=== PATIENT | male | born 1930 | race Caucasian/White ===

== ENCOUNTER → 2017-03-08 | Outpatient (CLI) | payer MEDICARE ==
--- NOTE | 2017-03-08 14:23 | KCIC ---
Carotid doppler ultrasound 03/08/2017 History: Dizziness. Multiple grayscale, color, and duplex spectral analysis waveform sonographic images were acquired of the carotid, subclavian, and vertebral arteries. Comparison: None Findings: There is intimal thickening throughout the right common carotid artery and bulb. There is no significant high-grade visualized plaque in the right internal carotid artery. There is mild scattered intimal thickening throughout the left common carotid artery and carotid bulb. No significant high-grade visualized plaque in the left internal carotid artery. RIGHT: PSV cm/sec EDV m/sec Mid Common carotid artery 76 9 Maximal internal carotid artery 61 15 External carotid artery 58 ICA/CCA ratio 0.8 LEFT: PSV cm/sec EDV cm/sec Mid Common carotid artery 85 15 Maximum internal carotid artery 65 17 External carotid artery 83 ICA/CCA ratio 0.76 Velocities used to determine stenosis are known to correlate with NASCET angiographic criteria. There is antegrade flow in the bilateral vertebral arteries. Impression: No visualized or spectral analysis evidence of hemodynamically significant carotid stenosis. Electronically signed by: Andrews Carrasquillo MD (03/08/2017 2:20 PM) [id number]
== END | disposition home or self-care (01) ==
LOC: KCIC US 13:14
PROVIDERS: ATTEND Family Medicine
DX: I65.23 Occlusion and stenosis of bilateral carotid arteries (principal)
CPT/HCPCS: 93880

== ENCOUNTER → 2017-08-09 | Outpatient (CLI) | payer BC | END | disposition home or self-care (01) | LOC: US 13:40 | DX: R22.1 Localized swelling, mass and lump, neck (principal) | CPT/HCPCS: 93971 ==

== ENCOUNTER → 2018-05-05 | Outpatient (CLI) | payer BC ==
[2017-08-07 04:00] VITALS: BP 150/84
[~2018-05-05] MED LIST: ASPI-612 PO; FINA5TAB4 PO; LOVA20TA2 PO; REGADENOSON 0.4 MG/5 ML DISP.SYRIN. IV ONE; TERA10CA3 PO
--- NOTE | 2018-05-05 13:10 | RAD ---
MR#: [id number] Date of Study: 05/05/2018 Ordering Physician: TRIXIE RANDALL, Referring Physician: LEO COREY Tech: RAJESH Carrera, ARRT (R) (N) APPROVED REPORT Test Type: Pharmacological Stress Nurse/Tech: Mary Cloud R.N. Test Indications: DONAHUE, fatigue Cardiac History: pacemaker, Medications: see ehr Medical History: see ehr Resting ECG: SR see printout Resting Heart Rate: 63 bpm Resting Blood Pressure: 152/76mmHg Pretest Chest Pain: No chest pain Nurse/Tech Notes lungs cta, heart tones regular, good radial pulse Consent: The procedure was explained to the patient in lay terms. Informed consent was witnessed. Humza eout was entered into [employer]. History and Stress Test performed by RT Isabela (R) (N) Pharm. Details Pharmacologic stress testing was performed using 0.4mg per 5ml of regadenoson given intravenously ove r 7-10 seconds. Stress Symptoms No chest pain or symptoms. POST EXERCISE Reason for Termination: Infusion complete Target HR: No Max HR: 83 bpm Max Blood Pressure: 155/84mmHg Chest Pain: No. Arrhythmia: No. pacemaker spikes noted intermittantly ST Change: No. INTERPRETATION Stress EKG Conclusion: Baseline EKG showed sinus rhythm with right bundle branch block. Nondiagnostic changes at peak stress. No arrhythmias. Imaging Protocol IMAGE PROTOCOL: Rest Tc-99m/stress Tc-99m 1 day Rest: Stress: Viability: Radiopharm.Tc99m JevjqdfugRl39n Sestamibi Fsbw39dHk 32.1mCi Duration 15min. 15min. Img Date 05/05/2018 05/05/2018 Inj-Img Rsgq71gan. 60min. Rest Admin Site:IV - Right AntecubitalAdministrator:RAJESH Carrera, ARRT (R)(N) Stress Admin Site: IV - Right AntecubitalAdministrator: RT Naomi Mar)(N) STRESS DATA End Diast. Vol.114.0mlLVEDV index BSA54.0ml End Syst. Vol.52.0mlLVESV index BSA24.0ml Myocardial Qpbg010.0gEject. Tnisncnd00.0% Stress Scores Regional WT0.00Summed WT27.00 Regional WM0.00Summed WM11.00 Study quality was good. Left Ventricular size was Normal at Rest and Stress. Lung uptake was . Left Ventricular ejection fraction is 54%. The rest and stress images show normal perfusion, normal contraction and thickening. LV Perf. Quant 17 Seg. SSS1.00 17 Seg. SRS4.00 17 Seg. SDS1.00 Stress Defect Extent (% LAD)0.00Rest Defect Extent (% LAD)0.00Rev. Defect Extent (% LAD)0.00 Stress Defect Extent (% LCX) 12.50Rest Defect Extent (% LCX)0.00Rev. Defect Extent (% LCX)12.50 Stress Defect Extent (% RCA)0.00Rest Defect Extent (% RCA)26.70Rev. Defect Extent (% RCA)0.00 Stress Defect Extent (% GIULIA)2.60Rest Defect Extent (% GIULIA)6.50Rev. Defect Extent (% GIULIA)2.60 Conclusion 1. Regadenoson cardioisotope stress test did not show any evidence of ischemia or infarct. 2. Normal left ventricular systolic function with ejection fraction calculated at 54%. 3. Low risk for cardiac events. Signed by : Trixie Randall, Electronically Approved : 05/05/2018 13:09:24
== END | disposition home or self-care (01) ==
LOC: NM 07:13
PROVIDERS: ATTEND Internal Medicine Cardiovascular Disease
DX: R06.09 Other forms of dyspnea (principal); R53.83 Other fatigue; I45.19 Other right bundle-branch block
CPT/HCPCS: 78452; 93017; 96374; 96375; 96376; A9500; J2785

== ENCOUNTER → 2018-10-01 | Outpatient (CLI) | payer BC ==
[2017-08-07 04:00] VITALS: BP 150/84
[~2018-10-01] MED LIST changes: -REGADENOSON 0.4 MG/5 ML DISP.SYRIN. IV ONE
--- NOTE | 2018-10-01 16:00 | CARD ---
MR#: [id number] Date of Study: 10/01/2018 Ordering Physician: TRIXIE RANDALL, Referring Physician: TRIXIE RANDALL, Tech: Yvonne Zendejas APPROVED REPORT EXAM: Two-dimensional and M-mode echocardiogram with Doppler and color Doppler. Other Information Quality : FairHR: 61bpm Rhythm : Pacemaker INDICATION Arrhythmia Heart Block Surgery/Intervention Pacemaker: Date: 08/2017 RISK FACTORS Hyperlipidemia 2D DIMENSIONS Left Atrium(2D)3.5 (1.6-4.0cm)IVSd1.1 (0.7-1.1cm) Aortic Root(2D)3.2 (2.0-3.7cm)LVDd6.0 (3.9-5.9cm) LVOT Diameter2.1 (1.8-2.4cm)PWd1.2 (0.7-1.1cm) LVDs3.7 (2.5-4.0cm) Aortic Valve AoV Peak Francisco Javier.144.5cm/sAoV VTI27.0cm AO Peak GR.8.4mmHgLVOT Peak Francisco Javier.98.6cm/s LVOT VTI 20.52cmAO Mean GR.4mmHg AI P 1/2 Ersk620fx Mitral Valve MV E Sfebqkrn87.7cm/sMV DECEL RIZG548iy MV A Pkqxjfbk39.9cm/sMV BCF95ij E/A Ratio1.1MVA (PHT)4.99cm2 TDI E/Lateral E'14.0E/Medial E'13.6 Pulmonary Valve PV Peak Tcfkwfvf703.4cm/sPV Peak Grad.5mmHg Tricuspid Valve TR P. Gagkhgct219pi/sRAP WXVVPBFW0nzDd TR Peak Gr.25mcWgOFGP81lrSk Pulmonary Vein S1 Hkycharx19.3cm/sD2 Aqmjaeii20.1cm/s LEFT VENTRICLE The left ventricle is normal size. There is mild concentric left ventricular hypertrophy. The left ve ntricular systolic function is normal and the ejection fraction is within normal range. The Ejection Fraction is 50-55%. Apical motion consistent with pacemaker activation. RIGHT VENTRICLE The right ventricle is normal size. There is normal right ventricular wall thickness. The right ventr icular systolic function is normal. There is a pacemaker lead in the right ventricle and atrium. ATRIA The left atrium size is normal. The right atrium is mildly dilated. There is a pacemaker lead seen in the right atrium. The interatrial septum is intact with no evidence for an atrial septal defect or p atent foramen ovale as noted on 2-D or Doppler imaging. AORTIC VALVE The aortic valve is calcified but opens well. Doppler and Color Flow revealed mild aortic regurgitati on. There is no significant aortic valvular stenosis. MITRAL VALVE The mitral valve is thickened but opens well. There is no evidence of mitral valve prolapse. There is no mitral valve stenosis. Doppler and Color-flow revealed trace mitral regurgitation. TRICUSPID VALVE The tricuspid valve is normal in structure and function. Doppler and Color Flow revealed trace tricus pid regurgitation with an estimated PAP of 29 mmHg. There is no tricuspid valve stenosis. PULMONIC VALVE The pulmonic valve is not well visualized. Doppler and Color Flow revealed no pulmonic valvular regur gitation. GREAT VESSELS The aortic root is normal in size. The IVC is normal in size and collapses >50% with inspiration. PERICARDIAL EFFUSION There is no evidence of significant pericardial effusion. Critical Notification Critical Value: No <Conclusion> The left ventricle is normal size. The left ventricular systolic function is normal and the ejection fraction is within normal range. The Ejection Fraction is 50-55%. There is mild concentric left ventricular hypertrophy. There is a pacemaker lead in the right ventricle and atrium. There is no significant aortic valvular stenosis. Doppler and Color Flow revealed mild aortic regurgitation. Doppler and Color-flow revealed trace mitral regurgitation. Doppler and Color Flow revealed trace tricuspid regurgitation with an estimated PAP of 29 mmHg. Signed by : Asim Hall MD Electronically Approved : 10/01/2018 15:59:59
== END | disposition home or self-care (01) ==
LOC: ECHO 12:41
PROVIDERS: ATTEND Internal Medicine Cardiovascular Disease
DX: I35.1 Nonrheumatic aortic (valve) insufficiency (principal); I51.7 Cardiomegaly; Z95.0 Presence of cardiac pacemaker
CPT/HCPCS: 93306

== ENCOUNTER → 2021-01-18 | Outpatient (CLI) | payer MEDICARE ==
[2017-08-07 04:00] VITALS: BP 150/84
[~2021-01-18] MED LIST changes: -ASPI-612 PO; +ASPI-886 PO; +CONTRAST GIVEN. MC PRN; +IOHEXOL 240 MG/ML 50ML VIAL. PO ONE; +IOHEXOL 300 MG/ML 100ML VIAL. IV ONE
[2021-01-18 11:07] LABS: CREATININE 1.1 mg/dL (0.7-1.3)
--- NOTE | 2021-01-18 15:41 | RAD ---
EXAM: CT Abdomen and Pelvis with IV contrast CLINICAL HISTORY: change in bowel habits COMPARISON: none TECHNIQUE: Helical CT of the abdomen and pelvis was performed following the administration of intrave nous contrast. Axial, coronal and sagittal reformatted images were generated. PQRS compliance statement - One or more of the following individualized dose reduction techniques wer e utilized for this study: 1. Automated exposure control 2. Adjustment of the mA and/or kV according to patient size 3. Use of iterative reconstruction technique FINDINGS: Lower Chest: Linear and bandlike opacities bilateral lung bases likely scarring/atelectasis. Emphysematous changes are seen. Cardiomegaly. Pacer leads are seen within the heart. Abdomen and Pelvis: Hepatic hypoattenuation, fatty liver. Hepatic cysts. Indeterminate hypodense posterior right hepatic lobe lesion measures 9 mm. Spleen is unremarkable. Adrenal glands are normal. Bilateral simple appearing renal cysts are seen. No definite solid renal lesion. Symmetric nephrogram s. No hydronephrosis. No hydroureter. Prostate measures 5.9 cm in transverse dimension. Appendix is normal. Moderate colonic stool content is seen. No small or large bowel dilatation. No angeline wel obstruction. Colonic diverticulosis without CT evidence for acute diverticulitis. Atherosclerotic calcifications of aorta are seen. Aneurysmal dilatation of the infrarenal aorta measu ring up to 4.8 cm with eccentric atheromatous plaque. No abdominal or pelvic lymphadenopathy. No abdo alba or pelvic ascites. Fatty atrophy of the gluteus minimus muscle bilaterally. No aggressive osseous lesion. IMPRESSION: 1. Moderate colonic stool content. No bowel obstruction. 2. Colonic diverticulosis without CT evidence for acute diverticulitis. Hepatic hypoattenuation, fat ty liver. 3. Indeterminate hypodense posterior right hepatic lobe lesion measures 9 mm. This can be further as sessed by MRI if clinically indicated. 4. 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 Electronically signed by: Noah Addison MD (01/18/2021 3:38 PM) [facility]
== END ==
LOC: CT 10:16
PROVIDERS: ATTEND Internal Medicine Gastroenterology
DX: K57.30 Diverticulosis of large intestine without perforation or abscess without bleeding (principal); K76.0 Fatty (change of) liver, not elsewhere classified; I71.4 Abdominal aortic aneurysm, without rupture; R19.4 Change in bowel habit; K76.89 Other specified diseases of liver; I70.0 Atherosclerosis of aorta; J43.9 Emphysema, unspecified; I51.7 Cardiomegaly
CPT/HCPCS: 36415; 74177; 82565; 84520; Q9966; Q9967

== ENCOUNTER → 2021-05-29 | Outpatient (CLI) | payer BC, MEDICARE ==
[2017-08-07 04:00] VITALS: BP 150/84
[~2021-05-29] MED LIST changes: -CONTRAST GIVEN. MC PRN; -IOHEXOL 240 MG/ML 50ML VIAL. PO ONE; -IOHEXOL 300 MG/ML 100ML VIAL. IV ONE
--- NOTE | 2021-05-31 10:05 | CARD ---
MR#: [id number] Date of Study: 05/29/2021 Ordering Physician: TRIXIE RANDALL, Referring Physician: TRIXIE RANDALL, Tech: APPROVED REPORT EXAM: Two-dimensional and M-mode echocardiogram with Doppler and color Doppler. Other Information Technically limited study due to body habitus. INDICATION Arrhythmia Complete Heart Block Surgery/Intervention Pacemaker: Date: 2016 RISK FACTORS Hyperlipidemia 2D DIMENSIONS Left Atrium(2D)3.3 (1.6-4.0cm)IVSd1.1 (0.7-1.1cm) Aortic Root(2D)3.5 (2.0-3.7cm)LVDd5.9 (3.9-5.9cm) LVOT Diameter2.1 (1.8-2.4cm)PWd1.2 (0.7-1.1cm) LVDs3.7 (2.5-4.0cm)FS (%) 37.2 % SV112.8 mlLVEF(%)66.4 (>50%) Aortic Valve AoV Peak Francisco Javier.103.9cm/sAoV VTI21.1cm AO Peak GR.4.3mmHgLVOT Peak Francisco Javier.104.1cm/s LVOT VTI 20.17cmAO Mean GR.2mmHg BATSHEVA (VMAX)2.41hm3UFE (VTI)3.36cm2 AI P 1/2 Jczi641fy Mitral Valve MV E Idttipyj12.9cm/sMV DECEL DMIQ071wi MV A Zcoaozvb54.6cm/sMV E Mean Gr.1mmHg MV MML02xgB/A Ratio0.5 MVA (PHT)2.71cm2 TDI E/Lateral E'5.1E/Medial E'5.5 Pulmonary Valve PV Peak Vlotvtou22.3cm/sPV Peak Grad.3mmHg Tricuspid Valve TR P. Htlgpcyw907ed/sRAP EYUKBGNP2nbWj TR Peak Gr.88hkNyBXRP41msUk Pulmonary Vein S1 Rusgwvbr26.0cm/sD2 Dldpchay29.1cm/s PVa buetztcx047nvzu LEFT VENTRICLE The left ventricle is normal size. There is borderline to mild concentric left ventricular hypertroph y. The systolic function is mildly to moderately impaired. The Ejection Fraction is 40%. Wall motion consistent with conduction abnormality. Otherwise, there is global hypokinesis. Transmitral Doppler f low pattern is abnormal. RIGHT VENTRICLE The right ventricle is normal size. There is normal right ventricular wall thickness. The right ventr icular systolic function is normal. There is a pacemaker lead in the right ventricle. ATRIA The left atrium size is normal. The right atrium size is normal. The interatrial septum is intact wit h no evidence for an atrial septal defect or patent foramen ovale as noted on 2-D or Doppler imaging. AORTIC VALVE The aortic valve is calcified but opens well. Doppler and Color Flow revealed trace aortic regurgitat ion. Calculated aortic valve area is 3.41 cm2 with maximum pressure gradient of 5 mmHg and mean press ure gradient of 3 mmHg. MITRAL VALVE The mitral valve is normal in structure and function. There is no evidence of mitral valve prolapse. There is no mitral valve stenosis. Doppler and Color-flow revealed trace mitral regurgitation. TRICUSPID VALVE The tricuspid valve is normal in structure and function. Doppler and Color Flow revealed trace tricus pid regurgitation with an estimated PAP of 26 mmHg. There is no tricuspid valve stenosis. PULMONIC VALVE The pulmonic valve is not well visualized. Doppler and Color Flow revealed trace pulmonic valvular re gurgitation. There is no pulmonic valvular stenosis. GREAT VESSELS The aortic root is normal in size. The ascending aorta is normal in size. The IVC is normal in size a nd collapses >50% with inspiration. PERICARDIAL EFFUSION There is no evidence of significant pericardial effusion. Critical Notification Critical Value: No <Conclusion> The systolic function is mildly to moderately impaired. The Ejection Fraction is 40%. Wall motion consistent with conduction abnormality. Otherwise, there is global hypokinesis. There is a pacemaker lead in the right ventricle. Doppler and Color Flow revealed trace tricuspid regurgitation with an estimated PAP of 26 mmHg. Signed by : Robert Titus, Electronically Approved : 05/31/2021 10:05:38
== END ==
LOC: ECHO 10:18
PROVIDERS: ATTEND Internal Medicine Cardiovascular Disease
DX: I35.1 Nonrheumatic aortic (valve) insufficiency (principal); I51.89 Other ill-defined heart diseases; I44.2 Atrioventricular block, complete
CPT/HCPCS: 93306

== ENCOUNTER → 2021-07-14 | Outpatient (CLI) | payer MEDICARE ==
[2017-08-07 04:00] VITALS: BP 150/84
[2021-07-14] MEDS: REGADENOSON 0.4 MG/5 ML DISP.SYRIN. IV ONE (08:45)
--- NOTE | 2021-07-14 14:49 | RAD ---
MR#: [id number] Date of Study: 07/14/2021 Ordering Physician: TRIXIE RANDALL, Referring Physician: LEO COREY Tech: RT Isabela (R) (N) APPROVED REPORT Test Type: Pharmacological Stress Nurse/Tech: Leticia Be R.N. Test Indications: complete heart block Cardiac History: PPM. x smoker Medications: See Electronic Medical Record Medical History: See Electronic Medical Record Resting ECG: vpaced Resting Heart Rate: 68 bpm Resting Blood Pressure: 155/70mmHg Pretest Chest Pain: No chest pain Nurse/Tech Notes S1S2, lungs CTA Consent: The procedure was explained to the patient in lay terms. Informed consent was witnessed. Humza eout was entered into [employer]. History and Stress Test performed by Lilliana Chan R.N. Pharm. Details Pharmacologic stress testing was performed using 0.4mg per 5ml of regadenoson given intravenously ove r 7-10 seconds. Stress Symptoms SOA, numbness and tingly in feet POST EXERCISE Reason for Termination: Infusion complete Max HR: 116 bpm Max Blood Pressure: 136/64mmHg Blood Pressure response to exercise: Normal blood pressure response during stress. Heart Rate response to exercise: wnl Chest Pain: No. Arrhythmia: No. ST Change: No. INTERPRETATION Stress EKG Conclusion: The resting EKG shows a V paced rhythm with both sinus beats and A paced beats . The patient remains with ventricular paced beats throughout the study. Imaging Protocol IMAGE PROTOCOL: Rest Tc-99m/stress Tc-99m 1 day Rest: Stress: Viability: Radiopharm.Tc99m SftkorrdqLx72u Sestamibi Mslh43tIo 32mCi Duration 15min. 10min. Img Date 07/14/2021 07/14/2021 Inj-Img Dpgb22poo. 60min. Rest Admin Site:IV - Right AntecubitalAdministrator: EMIL Larson Stress Admin Site: IV - Right AntecubitalAdministrator: RT Lisa (R)(N) STRESS DATA End Diast. Vol.144.0mlAv. Heart Rate81.0bpm End Syst. Vol.60.0mlCO Index BSA6.8L/min Myocardial Njne360.0gEject. Wnclsynz89.0% Stress Rates Pk. Fill Rate3.12EDV/secLVtime Pk. Fill 183.72msec Pk. Empty Rate3.39ESV/secLVtime Pk. Mtoug557.85msec 1/3 Pk. Fill0.60EDV/sec Stress Scores Regional WT0.00Summed WT7.00 Regional WM0.00Summed WM3.00 LV Perfusion The stress scans show mild inferior wall thinning. The rest scans show mild inferior wall thinning. Nuclear imaging shows no reversible ischemia. Nuclear imaging shows a fixed inferior wall defect most consistent with a technical artifact. Wall Motion Left ventricular systolic function is normal with an ejection fraction of 58%. LV Perf. Quant 17 Seg. SSS9.00 17 Seg. SRS28.00 17 Seg. SDS0.00 Stress Defect Extent (% LAD)10.60Rest Defect Extent (% LAD)30.60Rev. Defect Extent (% LAD)0.00 Stress Defect Extent (% LCX) 42.50Rest Defect Extent (% LCX)87.50Rev. Defect Extent (% LCX)0.00 Stress Defect Extent (% RCA)25.60Rest Defect Extent (% RCA)60.00Rev. Defect Extent (% RCA)0.00 Stress Defect Extent (% GIULIA)27.20Rest Defect Extent (% GIULIA)53.50Rev. Defect Extent (% GIULIA)0.00 Conclusion 1. Paced rhythm throughout the study. 2. Nuclear imaging showed no reversible ischemia. 3. Nuclear imaging showed a fixed inferior defect most consistent with a technical artifact. 4. Intact LV systolic function with an ejection fraction of 58%. 5. Moderately low risk Lexiscan nuclear stress test. Signed by : Asim Hall MD Electronically Approved : 07/14/2021 14:49:14
== END ==
LOC: NM 08:23
PROVIDERS: ATTEND Internal Medicine Cardiovascular Disease
DX: I44.2 Atrioventricular block, complete (principal)
CPT/HCPCS: 78452; 93017; A9500; J2785